=== PATIENT | female | born 1960 | race Caucasian/White ===

== ENCOUNTER 2020-07-12 14:46 | Outpatient (CLI) | payer OTHER, SELFPAY ==
[2020-07-12 15:36] LABS: Anion Gap 13 mmol/L (8-16); Blood Urea Nitrogen 12 mg/dL (7-17); Carbon Dioxide 27 mmol/L (22-30); Chloride 98 mmol/L (98-107); Estimated Glomerular Filt Rate 46; Glucose 118 mg/dL (65-105); Magnesium 1.6 mg/dL (1.6-2.3); Potassium 3.7 mmol/L (3.4-5.0); Sodium 138 mmol/L (137-145)
[2020-07-12 16:15] LABS: Erythrocyte Sedimentation Rate 15 mm/hr (0-20)
== END 2020-07-12 14:47 | disposition home or self-care (01) ==
PROVIDERS: PCP Internal Medicine; Visit Provider Internal Medicine
DX: N17.9 Acute kidney failure, unspecified (principal); R51.9 Headache, unspecified; G89.29 Other chronic pain
CPT/HCPCS: 36415; 80048; 83735; 85652

== ENCOUNTER 2020-07-17 00:55 | Outpatient (CLI) | payer OTHER, SELFPAY ==
[2020-07-17 18:47] LABS: SARS-CoV-2 RNA PCR Negative
== END 2020-07-17 00:56 | disposition home or self-care (01) ==
LOC: ANHCOVIDDT 00:55
PROVIDERS: PCP Internal Medicine; Visit Provider Internal Medicine
DX: Z01.812 Encounter for preprocedural laboratory examination (principal); Z20.822 Contact with and (suspected) exposure to COVID-19
CPT/HCPCS: C9803; U0003; U0005

== ENCOUNTER 2020-07-22 09:20 | Outpatient (CLI) | payer OTHER, SELFPAY ==
--- NOTE | ~2020-07-22 | XR_ITS ---
EXAMINATION: XR lumbar puncture diagnostic DATE: 07/22/2020 11:40 INDICATION: Headache, unspecified. TECHNIQUE: The procedure including the risks, benefits, and alternatives was discussed with the patie nt. Risks discussed included spinal headache, cerebrospinal fluid leak, bleeding, and infection. The patient understood the risks and agreed to proceed. A timeout was performed to verify the patient' s name, date of , and procedure to be performed. The skin overlying the level was prepped and d raped in usual sterile fashion. Subcutaneous 1% lidocaine was used for local anesthesia. A 20 gauge spinal needle was advanced under fluoroscopic guidance. The needle was removed and the entry site wa s cleaned and dressed. There were no immediate complications. Fluoroscopy exposure time was 0.0 angeles matthew. The total number of images was 1. FINDINGS: Real-time fluoroscopy demonstrates the needle at the L2-L3 level. The opening pressure was 16 cm water (Normal range is variably defined as 6-20 cm water and up to 25 cm water in obese patient s. Pressure >25 cm water is one of the modified Dandy criteria for idiopathic intracranial hypertensi on). 14 mL of clear, colorless fluid was collected in 4 tubes. IMPRESSION: 1. Successful fluoro-guided lumbar puncture. Reviewed, dictated and finalized at location A. [employer]
[2020-07-22 10:20] LABS: INR 0.8; Prothrombin Time 11.8 Seconds (11.1-14.7)
[2020-07-22 10:40] VITALS: BP 130/70; PULSE 70; RESP 16; O2SAT 99
[2020-07-22 11:20] VITALS: BP 131/72; BP 135/74; PULSE 66; PULSE 70; RESP 16; RESP 18; TEMP 36.2; O2SAT 96; O2SAT 98
[2020-07-22 11:50] VITALS: BP 137/77; PULSE 61; RESP 18; O2SAT 98
[2020-07-22 12:02] LABS: Glucose CSF 62 mg/dL (40-70); Total Protein CSF 64 mg/dL (12-60)
[2020-07-22 12:20] VITALS: BP 127/61; PULSE 68; RESP 18; O2SAT 100
[2020-07-22 12:50] VITALS: BP 129/69; PULSE 71; RESP 18; O2SAT 97
[2020-07-22 13:02] LABS: Appearance CSF Clear (Clear); CSF source CSF; Color CSF Colorless (Colorless); Lymphocytes CSF 9 % (40-80); Monocytes CSF 1 % (15-45); Neutrophils CSF 2 % (0-6); Nucleated Cell CSF 0 /uL (0-5); Red Blood Cell CSF 0 (0-2)
[2020-07-22 13:05] VITALS: BP 136/56; PULSE 66; RESP 16; O2SAT 98
== END 2020-07-22 13:20 | disposition home or self-care (01) ==
PROVIDERS: Radiology Diagnostic Radiology; PCP Internal Medicine; Visit Provider Internal Medicine
DX: R51.9 Headache, unspecified (principal); G89.29 Other chronic pain
CPT/HCPCS: 36415; 62328; 82945; 83605; 84157; 85610; 87070; 89051

== ENCOUNTER 2021-04-20 20:35 | Inpatient (IN) | payer OTHER, SELFPAY ==
--- NOTE | ~2021-04-20 | XR_ITS ---
EXAMINATION: XR ERCP DATE: 04/22/2021 14:38 INDICATION: EXAMINATION: XR ERCP DATE: 04/22/2021 14:38 INDICATION: Sludge versus gallstones. Pancreatitis. TECHNIQUE: 5 fluoroscopic images of the right upper quadrant were obtained during ERCP performed by George Naqvi. Radiologist was not present for the imaging or procedure. The amount of fluoroscopy time u sed during this procedure was 1.9 minutes. COMPARISON: MRCP dated 04/21/2021 FINDINGS: Initial image demonstrates cannulation and retrograde contrast opacification of the distal main pancr eatic duct which appears normal. Subsequently the common bile duct is cannulated with retrograde cont rast opacification demonstrating normal caliber duct with ovoid filling defect in the distal duct on the initial images likely representing a gallstone. Dilute contrast is seen extending into the normal diameter gallbladder. IMPRESSION: 1. Small gallstone in the distal aspect of the normal appearing common bile duct which per procedure note was subsequently extracted. See procedure note for further detail. TECHNIQUE: Multiple spot fluoroscopic images of the right upper quadrant were obtained during endosco pic retrograde cholangiopancreatography (ERCP) performed by . Radiologist was not present for the amy ging or procedure. The amount of fluoroscopy time used during this procedure was minutes. COMPARISON: None. FINDINGS: IMPRESSION: 1. Please refer to the ERCP procedure note for additional details. Reviewed, dictated and finalized at location A. IMPRESSION: 1. Small gallstone in the distal aspect of the normal appearing common bile gretta t which per procedure note was subsequently extracted. See procedure note for f urther detail. TECHNIQUE: Multiple spot fluoroscopic images of the right upper quadrant were o btained during endoscopic retrograde cholangiopancreatography (ERCP) performed by . Radiologist was not present for the imaging or procedure. The amount of fl uoroscopy time used during this procedure was minutes. COMPARISON: None. FINDINGS:
--- NOTE | ~2021-04-20 | CT_ITS ---
EXAMINATION: CT abdomen pelvis w con DATE: 04/20/2021 23:16 INDICATION: Pancreatitis TECHNIQUE: Computed tomography (CT) of the abdomen and pelvis was performed with 100 cc Omnipaque 350 intravenous contrast. Automated exposure control and iterative reconstruction technique were employe d. Exam dose: 351.19 mGy-cm total exam DLP. COMPARISON: None. FINDINGS: Approximately 12 mm soft tissue density in the posterior basilar areas in right lower lobe which may represent some focal atelectasis, consolidation and/or fibrotic change. Malignancy is less likely. There is discoid atelectasis and/or scarring involving primarily the right lower lobe. Normal heart size. No pericardial or pleural effusion. The liver, gallbladder, spleen, and adrenal glands are unremarkable. There is abnormal enlargement and irregularity of the body of the pancreas, with irregular areas of l ower attenuation consistent with cystic change and/or necrosis. There is prominent peripancreatic fat stranding and thickening of the left anterior pararenal fascia. Findings are consistent with pancrea titis. There are focal areas of left renal scarring. No renal space occupying mass lesion or urinary tract c alculus is evident. There is atherosclerotic calcification but no aneurysm of the abdominal aorta. No intraperitoneal or retroperitoneal or pelvic mass lesion or adenopathy or ascites. The uterus, adnexal areas and urinary bladder are unremarkable. Small fat-containing umbilical hernia. No suspicious osteolytic or osteoblastic lesions. IMPRESSION: Pancreatitis Reviewed, dictated and finalized at Location A. Reviewed, dictated and finalized at location A. IMPRESSION: Pancreatitis
--- NOTE | ~2021-04-20 | CT_ITS ---
EXAMINATION: CT abdomen wo con DATE: 04/23/2021 19:04 INDICATION: Uncontrolled abdominal pain TECHNIQUE: Computed tomography (CT) of the abdomen was performed without intravenous contrast. Automa chelsea exposure control and iterative reconstruction technique were employed. Exam dose: 132.28 mGy-cm total exam DLP. COMPARISON: 04/21/2021 right upper quadrant abdominal ultrasound 04/20/2021 CT abdomen pelvis FINDINGS: There is mild atelectasis in the lower lung zones, most prominent in the dependent right lo wer lobe. Normal heart size. No pericardial or pleural effusion. There is peripancreatic fat stranding consistent with pancreatitis. Persistent approximately 11 mm hy poattenuating area in the body of the pancreas which may represent cystic or focal necrotic change, n ot significant change since 04/20/2021. There is mild common bile duct dilatation measuring up to approximately 10 mm diameter. There is cont rast material within the gallbladder and common bile duct. No hepatic, splenic space-occupying mass lesion. No splenomegaly. Normal morphology of the adrenal gl ands. Left renal scarring is again noted. No renal mass lesion or hydroureteronephrosis. Abdominal aortic calcification; no abdominal aortic aneurysm. No intraperitoneal or retroperitoneal m ass lesion or adenopathy or ascites. No bowel obstruction is detected. IMPRESSION: Stable changes of pancreatitis since 04/20/2021 Distended gallbladder and common bile duct measuring up to 10 mm, both increased in prominence since 04/20/2021 Reviewed, dictated and finalized at Location A. Reviewed, dictated and finalized at location A. IMPRESSION: Stable changes of pancreatitis since 04/20/2021 Distended gallbladder and common bile duct measuring up to 10 mm, both increase d in prominence since 04/20/2021
--- NOTE | ~2021-04-20 | MR_ITS ---
EXAMINATION: MR MRCP wo/w con/w 3D wo ind DATE: 04/21/2021 14:04 INDICATION: Recurrent pancreatitis TECHNIQUE: Magnetic resonance imaging (MRI) of the abdomen was performed without and with intravenous contrast. Sequences included coronal T2-weighted SS-FSE ARC, coronal T2-weighted FS SS-FSE, coronal T2-weighted 2D FS FIESTA, Water:Coronal LAVA-Flex, sagittal T2-weighted SS-FSE ARC, axial SSFSE ARC, axial 3D DualEcho, axial DWI B=600, axial T1-weighted LAVA, FAT:Coronal LAVA-Flex, and coronal in and opposed phase LAVA-Flex. Thick-slab T2-weighted FRFSE-XL images were obtained for magnetic resonance cholangiopancreatography (MRCP). Maximum intensity projection 3-D reconstructions of the volumetric data were created by the technologist. Postcontrast sequences included a time course of axial T1-weig hted LAVA, FAT:Coronal LAVA-Flex, coronal in and opposed phase LAVA-Flex, and Water:Coronal LAVA-Flex . COMPARISON: CT from yesterday CONTRAST: Multihance, 10 cc FINDINGS: ABDOMEN MRI: There is atelectasis in the lower lobes. The liver, spleen, gallbladder, and adrenal gla nds are normal. There is a small amount of inflammatory fluid surrounding the pancreas. There is a 1. 5 cm fluid collection in the body of the pancreas. Cysts of the kidneys measure up to 11 mm on the le ft. There is cortical scarring of the kidneys. No pathologically enlarged abdominal lymph nodes are i dentified. There are no dilated loops of bowel. ABDOMEN MRCP: Their is no intrahepatic or extrahepatic biliary dilatation. There appears to be a 3 mm stone in the distal common bile duct on the MRCP sequences. There is enlargement of the pancreatic d uct in the body of the pancreas, likely reflecting prior pancreatitis. IMPRESSION: 1. Necrotizing pancreatitis with sterile acute necrotic collection. 2. Possible 3 mm stone of the distal common bile duct. Reviewed, dictated and finalized at location B.
--- NOTE | ~2021-04-20 | US_ITS ---
EXAMINATION: US right upper quadrant EXAM DATE: 04/21/2021 08:27 INDICATION: Pancreatitis. TECHNIQUE: Multiple grayscale and Doppler images of the abdomen right upper quadrant were obtained (cecille y a technologist who performed the scan) and subsequently reviewed. There is no prior study for [place]. FINDINGS: The pancreatic head and body are normal in appearance. The pancreatic tail is not visualized. Please note that uncomfortable aerated pancreatitis typically does not have ultrasound findings. The liver has normal echogenicity and contour. There are no focal liver lesions identified. There is no evid ence of intrahepatic biliary duct dilation. Portal venous flow was seen in the hepatopedal, normal d irection and has normal Doppler waveform. No right-sided hydronephrosis. Common bile duct measures 2 mm, which is normal. The gallbladder wall is normal in thickness, with ex pected amount of distention. No sonographic evidence of pericholecystic fluid. There is no cholelit hiases. Technologist performing exam reports patient did not demonstrate sonographic Graff's sign. Please note that this sign is less reliable in patients who have received pain medication. IMPRESSION: 1. Unremarkable abdominal ultrasound exam. Reviewed, dictated and finalized at location A.
[2021-04-20 20:42] VITALS: BP 149/67; PULSE 89; RESP 16; TEMP 36.6; O2SAT 100
[2021-04-20 22:16] VITALS: BP 170/75; PULSE 102; RESP 20; O2SAT 100
[2021-04-20 22:17] VITALS: BP 170/75; PULSE 103; RESP 20; TEMP 36.8; O2SAT 100
[2021-04-20 22:17] LABS: Add Urine Microscopic? YES; Appearance Urine Cloudy (Clear); Bilirubin Urine Negative (Negative); Blood Urine Negative (Negative); Color Urine Yellow (Yellow); Glucose Urine UA Negative (Negative); Ketones Urine Negative (Negative); Leukocyte Esterase Ur Negative LEU/UL (Negative); Mucus Urine Rare /lpf; Nitrate Urine Negative (Negative); Protein Urine Negative (Negative); RBC Urine 21-50 /hpf (0-2); Specific Grav Ur 1.016 (1.001-1.035); Squamous Epithelial Cell Urine Few /hpf (Few)
[2021-04-20] MEDS: MORPHINE SULFATE (*CRX) 4 MG/ML INJ IV PUSH (22:19)
[2021-04-20] MEDS: SODIUM CHLORIDE 0.9% IV 1,000 ML 999 ML IV CONT (22:20)
[2021-04-20 22:26] LABS: Basophils Absolute Auto 0.1 K/mm3 (0.0-0.1); Basophils Percent Auto 0.9 % (0.2-1.2); Eosinophils Absolute Auto 0.4 K/mm3 (0-0.3); Eosinophils Percent Auto 4.1 % (0-4.4); Hematocrit 32.6 % (37.0-47.0); Hemoglobin 10.2 g/dL (12.0-15.0); Immature Granulocyte Absolute 0.03 K/mm3 (0.00-0.031); Immature Granulocyte Percent A 0.3 % (0-0.5); Lymphocytes Absolute Auto 1.78 K/mm3 (0.9-3.2); Lymphocytes Percent Auto 19.7 % (18.3-44.2); Mean Corpuscular HGB Conc 31.3 g/dl (32-36); Mean Corpuscular Hemoglobin 26.8 pg (26-34); Mean Corpuscular Volume 85.8 fl (80-100); Mean Platelet Volume 10.4 fl (7.4-10.4); Monocytes Absolute Auto 0.5 K/mm3 (0.1-0.6); Monocytes Percent Auto 5.9 % (2.6-8.5); Neutrophils Absolute Auto 6.2 K/mm3 (1.3-6.7); Neutrophils Percent Auto 69.1 % (45.5-73.1); Platelet Count Result 253 k/mm3 (150-375); Red Cell Distribution Width 17.2 % (11.5-14.5)
[2021-04-20 22:46] VITALS: BP 164/75; PULSE 76; RESP 15; O2SAT 97
[2021-04-20 22:53] LABS: Anion Gap 9 mmol/L (8-16); Blood Urea Nitrogen 9 mg/dL (7-17); Calcium 9.9 mg/dL (8.4-10.2); Carbon Dioxide 25 mmol/L (22-30); Chloride 107 mmol/L (98-107); Estimated CRCL calculation 40 ml/min; Estimated Glomerular Filt Rate 51; Glucose 141 mg/dL (65-110); Potassium 4.4 mmol/L (3.4-5.0); Sodium 141 mmol/L (137-145)
--- NOTE | 2021-04-20 23:03 | PC.NURSE ---
Pt to CT scan via stretcher at this time.
[2021-04-21] VITALS (8 sets, daily range): BP systolic 121–165; BP diastolic 56–74; PULSE 79–98; RESP 15–21; TEMP 36.3–36.6; O2SAT 92–100; BMI 22.9
[2021-04-21] MEDS: MORPHINE SULFATE (*CRX) 4 MG/ML INJ IV PUSH ×4 (00:12→23:55)
--- NOTE | 2021-04-21 00:13 | ED.ABDPAIN ---
HPI - Abdominal Pain General Chief Complaint: Abdominal Pain Stated Complaint: abnormal labs Time Seen by Provider: 04/20/21 21:48 Source: patient Mode of arrival: ambulatory Limitations: no limitations History of Present Illness HPI narrative: 60-year-old with a history of pancreatitis here with complaints of upper abdominal pain for past few days. Patient states that she was admitted at [facility] for for the same the month of February for 1 week. For past few days she states she has been having constant pain unable to eat or drink because of the pain. She states that she saw her primary doctor this morning and recommended her to go to the emergency room. She denies any vomiting but has nausea. No history of any diarrhea or fever. MD elicited complaint: abdominal pain Pertinent past history: other (Pancreatitis) Onset (ago): day(s) (3) Location: epigastric Severity: moderate Quality: aching Radiation: epigastric Migration to: no migration Exacerbating factors: nothing Related Data Allergies Allergy/AdvReac Type Severity Reaction Status Date / Time tramadol Allergy Vomiting Verified 07/20/20 08:05 Review of Systems Review of Systems: All systems reviewed & are unremarkable except as noted in HPI and below Constitutional: Constitutional: Reports no additional constitutional complaints Eyes: Eyes: Reports no additional eye complaints ENT: Reports system reviewed and no additional complaints, except as documented Cardiovascular: Cardiovascular: Reports no additional cardiovascular complaints Respiratory: Respiratory: Reports no additional respiratory complaints Gastrointestinal: Gastrointestinal: Reports as per HPI Musculoskeletal: Musculoskeletal: Reports no additional musculoskeletal complaints Integumentary/Breasts: Skin/Breast: Reports system reviewed and no additional complaints, except as docu Neurologic: Reports system reviewed and no additional complaints, except as documented PMFSH Past Medical History Medical History Arthritis Chronic pancreatitis Gallbladder disorder Headache Hearing loss Ulcer Unspecified sensorineural hearing loss Family History Family History Mother Lung cancer Social History Social History Smoking packs per day: 1 Smoking cigarettes per day: 20.0 Years smoked: 30 Smoking pack-years: 30.00 Smoking status: Former smoker Tobacco type: cigarettes Alcohol intake: current Exam Narrative: GENERAL: Well-appearing, well-nourished, and in no acute distress. HEAD: Normocephalic, atraumatic. EYES: PERRLA and EOMI.. NECK: Supple. CHEST: Clear to auscultation. No respiratory distress. HEART: Regular rate and rhythm. No murmur heard. Normal peripheral pulses. ABDOMEN: Soft, tender in the epigastric area, nondistended, normal active bowel sounds. EXTREMITIES: Normal range of motion. No edema. SKIN: Warm, dry, no rash. NEURO: No focal deficits. Alert and oriented x3. PSYCH: Normal mood and affect. Course Course Emergency Course: Patient continues to have pain even after morphine. I have reviewed lab work, CT findings. Discussed with hospitalist agreed to admit the patient. Vital Signs Vital signs: Vital Signs Temperature 36.6 C 04/20/21 20:42 Pulse Rate 89 04/20/21 20:42 Respiratory Rate 16 04/20/21 20:42 Blood Pressure 149/67 H 04/20/21 20:42 Pulse Oximetry 100 04/20/21 20:42 Temperature 36.8 C 04/20/21 22:17 Pulse Rate 98 04/21/21 00:11 Respiratory Rate 18 04/21/21 00:11 Blood Pressure 164/75 H 04/20/21 22:46 Pulse Oximetry 100 04/21/21 00:11 MDM - Abdominal Pain Differential Diagnosis Differential diagnosis: Likely abdominal pain, constipation, gastroenteritis, pancreatitis and small bowel obstruction Medical Records Attestation: I review
[2021-04-21 00:44] LABS: Alanine Aminotransferase 14 U/L (4-35); Albumin Level 4.4 g/dL (3.5-5.1); Alkaline Phosphatase 108 U/L (38-126); Aspartate Amino Transferase 27 U/L (14-36); Bilirubin,Total 0.4 mg/dL (0.2-1.3); Lipase 709 U/L (23-300)
--- NOTE | 2021-04-21 01:29 | ADMGEN ---
This patient, Janell Asencio, was admitted to 2 Medical Room 255-. Patient/family oriented to hospital policies and general routines including ID bracelet, bed and alarms, visiting hours, pain management, procedures, bathroom and other care routines, personal items, smoking policy, room service/diet, and visiting hours. Information on how to activate the Rapid Response Team has been discussed. Patient/Family are encouraged to report perceived risks to care and to ask questions if they do not understand what they are told or what they should do.
[2021-04-21] MEDS: SODIUM CHLORIDE 0.9% IV 1,000 ML 125 ML IV CONT ×2 (01:42→11:25)
--- NOTE | 2021-04-21 02:56 | PM.IMHP ---
H&P: HPI History of Present Illness Date/Time: 04/21/21 02:56 Chief Complaint: Abdominal pain Narrative: 60-year-old presents to the ED with abdominal pain for past few days. She states she has not been able to eat Because of the pain. Denies any diarrhea or any urinary symptoms. She has nausea but no vomiting. She states she has history of pancreatitis in February number was in [facility] for a week. she followed up with the primary care after the discharge when she was feeling better already. She went to see her primary care doctor yesterday morning and she recommended her to go to the ER for evaluation. she was told that she had some kidney issues and hence sent to the ED. No fever chills. She used to be a social drinker but 3 years ago and stopped drinking since then. Review of Systems Review of Systems: - CONSTITUTIONAL: Denies weight loss, fever and chills. - HEENT: Denies changes in vision and hearing - RESPIRATORY: Denies SOB and cough. - CV: Denies palpitations and CP. - GI: Reports abdominal pain, nausea, denies vomiting and diarrhea. - : Denies dysuria and urinary frequency. - MSK: Denies myalgia and joint pain. - SKIN: Denies rash and pruritus. - NEUROLOGICAL: Denies headache and syncope. - PSYCHIATRIC: Denies recent changes in mood. Denies anxiety and depression. All systems reviewed & are unremarkable except as noted in HPI and below Constitutional: Constitutional: Reports fatigue and Reports weakness Neurologic: Reports weakness Endocrine: Endocrine: Reports fatigue [facility] Past Medical History Medical History Arthritis Chronic pancreatitis Gallbladder disorder Headache Hearing loss Ulcer Unspecified sensorineural hearing loss Family History Family History Mother Lung cancer Social History Social History Smoking packs per day: 1 Smoking cigarettes per day: 20.0 Years smoked: 30 Smoking pack-years: 30.00 Smoking status: Former smoker Tobacco type: cigarettes Alcohol intake: former Substance use: current Substance use type: marijuana Last use: 1 WEEK AGO Spiritual care concerns: No Meds Home Medications and Allergies Home Medications Medication Instructions Recorded Confirmed Type gabapentin 300 mg capsule 300 mg PO TID #270 cap 06/28/20 04/21/21 Rx omeprazole 20 mg capsule,delayed 20 mg PO DAILY #90 cap 06/28/20 04/21/21 Rx release duloxetine 30 mg capsule,delayed 30 mg PO DAILY #90 cap 02/28/21 04/21/21 Rx release duloxetine 60 mg capsule,delayed 60 mg PO DAILY #90 cap 02/28/21 04/21/21 Rx release pantoprazole 40 mg PO QAM 04/21/21 04/21/21 History Allergies Allergy/AdvReac Type Severity Reaction Status Date / Time tramadol Allergy Vomiting Verified 07/20/20 08:05 Vital Signs Vital Signs - 24 hr 04/20/21 20:42 04/20/21 22:16 04/20/21 22:17 Temperature 97.9 F 98.2 F Pulse Rate 89 102 H 103 H Respiratory Rate 16 20 20 Blood Pressure 149/67 H 170/75 H 170/75 H Pulse Oximetry 100 100 100 04/20/21 22:46 04/21/21 00:11 04/21/21 01:05 Temperature Pulse Rate 76 98 90 Respiratory Rate 15 18 15 Blood Pressure 164/75 H 153/70 H 145/74 H Pulse Oximetry 97 100 99 04/21/21 01:33 Temperature 97.5 F L Pulse Rate 88 Respiratory Rate 21 H Blood Pressure 165/72 H Pulse Oximetry 100 Exam Narrative: GENERAL: Well-appearing, well-nourished, and in no acute distress. HEAD: Normocephalic, atraumatic. EYES: PERRLA and EOMI.. NECK: Supple. CHEST: Clear to auscultation. No respiratory distress. HEART: Regular rate and rhythm. No murmur heard. Normal peripheral pulses. ABDOMEN: Soft, tender epigastric area and also in lower abdominal area, nondistended, normal active bowel sounds. no rebound tenderness or guarding EXTREMITIES: Normal ran
[2021-04-21 03:29] LABS: Triglycerides 97 mg/dL (<150)
[2021-04-21 05:46] LABS: Add Urine Microscopic? NO; Appearance Urine Clear (Clear); Bilirubin Urine Negative (Negative); Blood Urine Negative (Negative); Color Urine Straw (Yellow); Glucose Urine UA Negative (Negative); Ketones Urine Negative (Negative); Leukocyte Esterase Ur Negative LEU/UL (NEGATIVE); Nitrate Urine Negative (Negative); Protein Urine Negative (Negative); Urobilinogen Urine Negative mg/dL (<2.0)
[2021-04-21 06:04] LABS: Specific Grav Ur 1.035 (1.001-1.035)
[2021-04-21] MEDS: GABAPENTIN 300 MG CAPSULE PO ×3 (08:40→18:04)
[2021-04-21] MEDS: DULoxetine HCL 60 MG CAPSULE.DR PO (08:41)
[2021-04-21] MEDS: DULoxetine HCL 30 MG CAPSULE.DR PO (08:41)
[2021-04-21] MEDS: PANTOPRAZOLE SODIUM IV 40 MG VIAL IV PUSH (08:43)
[2021-04-21] MEDS: ENOXAPARIN 40 MG/0.4 ML SYRINGE SUB-Q (08:43)
[2021-04-21 09:03] LABS: Hemoglobin 9.5 g/dL (12.0-15.0)
[2021-04-21 09:25] LABS: Immunoglobulin G 745 mg/dL (700-1600)
[2021-04-21 10:28] LABS: Anion Gap 10 mmol/L (8-16); Blood Urea Nitrogen 6 mg/dL (7-17); Carbon Dioxide 17 mmol/L (22-30); Chloride 115 mmol/L (98-107); Estimated CRCL calculation 48 ml/min; Estimated Glomerular Filt Rate > 60; Glucose 92 mg/dL (65-110); Lipase 315 U/L (23-300); Potassium 4.4 mmol/L (3.4-5.0); Sodium 142 mmol/L (137-145)
--- NOTE | 2021-04-21 12:16 | WPDGICN ---
Assessment and Plan Assessment and plan (1) Acute on chronic pancreatitis: Code(s): K85.90 - Acute pancreatitis without necrosis or infection, unspecified; K86.1 - Other chronic pancreatitis Status: Acute Assessment and Plan: Patient appears to have chronic pancreatitis with some acute component at present. Her lipase is over 700 on presentation is now 300. Etiology appears to be previous alcohol intake. I understand IgG levels are being obtained to exclude autoimmune pancreatitis. Would also recommend an MRCP to clear the biliary tree. As lipase decreases in her pain improves would suggest advancing to low-fat diet. Continuing Creon as an outpatient may help minimize some of her discomfort as well. Continued alcohol abstinence is strongly encouraged. GI Consult Note Consult date/time: 04/21/21 12:16 HPI: Janell Asencio is a 60 year old female I am asked to see because of pancreatitis. Patient has a history of alcohol use until 3 years ago. Three years ago was identified as having pancreatitis and she states she has been abstinent of alcohol since that time. She has had relapses of her pancreatitis intermittently and has gone to various different hospitals. Initially diagnosed at [facility]. Her most recent hospitalization was 1 month ago at [facility]. Patient states she has continued to have pain since that time although the intensity is lessened it became more intense she was seen by primary care service and laboratory tests apparently showed elevated lipase prompting her to come to the ER and be admitted. CT scan in the ER reveals no evidence of gallstones on recent exam. Patient additionally complains of ongoing back pain that she attributes to some orthopedic difficulties. Review of Systems Review of Systems: All systems reviewed & are unremarkable except as noted in HPI and below PMFSH Past Medical History Medical History Arthritis Chronic pancreatitis Gallbladder disorder Headache Hearing loss Ulcer Unspecified sensorineural hearing loss Family History Family History Mother Lung cancer Social History Social History Smoking packs per day: 1 Smoking cigarettes per day: 20.0 Years smoked: 30 Smoking pack-years: 30.00 Smoking status: Former smoker Tobacco type: cigarettes Alcohol intake: former Substance use: current Substance use type: marijuana Last use: 1 WEEK AGO Spiritual care concerns: No Meds Home Medications and Allergies Home Medications Medication Instructions Recorded Confirmed Type gabapentin 300 mg capsule 300 mg PO TID #270 cap 06/28/20 04/21/21 Rx omeprazole 20 mg capsule,delayed 20 mg PO DAILY #90 cap 06/28/20 04/21/21 Rx release duloxetine 30 mg capsule,delayed 30 mg PO DAILY #90 cap 02/28/21 04/21/21 Rx release duloxetine 60 mg capsule,delayed 60 mg PO DAILY #90 cap 02/28/21 04/21/21 Rx release pantoprazole 40 mg PO QAM 04/21/21 04/21/21 History Allergies Allergy/AdvReac Type Severity Reaction Status Date / Time tramadol Allergy Vomiting Verified 07/20/20 08:05 Vital Signs Vital Signs - 24 hr 04/20/21 20:42 04/20/21 22:16 04/20/21 22:17 Temperature 97.9 F 98.2 F Pulse Rate 89 102 H 103 H Respiratory Rate 16 20 20 Blood Pressure 149/67 H 170/75 H 170/75 H Pulse Oximetry 100 100 100 04/20/21 22:46 04/21/21 00:11 04/21/21 01:05 Temperature Pulse Rate 76 98 90 Respiratory Rate 15 18 15 Blood Pressure 164/75 H 153/70 H 145/74 H Pulse Oximetry 97 100 99 04/21/21 01:33 04/21/21 04:00 Temperature 97.5 F L 97.4 F L Pulse Rate 88 79 Respiratory Rate 21 H 20 Blood Pressure 165/72 H 141/71 H Pulse Oximetry 100 98 Exam Narrative: Physical exam reveals patient be alert. Vital signs stable. HEENT exam is unremarkable. Patient is anic
[2021-04-21] MEDS: LORazepam INJ (*CRX) 2 MG/ML VIAL 1 MG IV PUSH (13:13)
--- NOTE | 2021-04-21 14:44 | PM.IMPN ---
Progress Note: A&P Assessment and Plan (1) Acute on chronic pancreatitis: Code(s): K85.90 - Acute pancreatitis without necrosis or infection, unspecified; K86.1 - Other chronic pancreatitis Status: Acute Assessment and Plan: Presented with epigastric pain, Lipase elevated up to 709, and CT abdomen/ pelvis showed findings consistent with pancreatitis. RUQ ultrasound unremarkable. lipase improved to 300 today continue gentle IV fluids until she is tolerating diet MRCP performed today. Awaiting results appreciate gastroenterology consultation advance to low-fat diet per GI analgesics and antiemetics available as needed LFTs and triglycerides within normal limits (2) Chronic kidney disease, stage 3: Code(s): N18.30 - Chronic kidney disease, stage 3 unspecified Status: Acute Assessment and Plan: Renal function actually improved from baseline at this time. Continue to monitor BMP closely (3) Elevated blood pressure reading: Code(s): R03.0 - Elevated blood-pressure reading, without diagnosis of hypertension Status: Acute Assessment and Plan: She does not carry a diagnosis of hypertension and is not on any antihypertensive agents. Blood pressure has been elevated which may be related to pain. Improving today with last BP 141/66. Monitor blood pressure trends (4) Microscopic hematuria: Code(s): R31.29 - Other microscopic hematuria Status: Acute Assessment and Plan: Resolved on repeat UA performed today. 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 she is doing pretty well at this time. She denies any abdominal pain. She previously had some epigastric pain that radiated to the back but this seems to have improved significantly. She has been NPO for her MRCP and is feeling hungry and is requesting to eat some solid food. No nausea or vomiting. She denies fever or chills. No shortness breath, cough, or chest pain. She denies urinary symptoms. No diarrhea. She is a little sleepy. Review of Systems Review of Systems: All systems reviewed & are unremarkable except as noted in HPI and below Exam Narrative: Ms. Asencio is A well-nourished, well-appearing 60-year-old female who is lying supine in bed. he appears comfortable and is in NARD. Neuro: awake, alert and oriented x4, speech clear, no focal neuro deficits noted HEENMT: normocephalic, atraumatic, EOMI, sclerae anicteric, moist oral mucosa Neck: supple, no lymphadenopathy Respiratory: clear to auscultation bilaterally, nonlabored breathing Cardio: regular rate, regular rhythm with S1-S2 Abdomen: nondistended, normoactive bowel sounds, soft, nontender to palpation, no epigastric tenderness Extremities: no edema, erythema, or tenderness to palpation, DP pulses 2+ bilaterally Skin: no rashes or lesions, warm and dry Psych: appropriate mood and affect, judgment and insight intact Objective Data Vital Signs Vital Signs: Vital Signs - 24 hr 04/20/21 20:42 04/20/21 22:16 04/20/21 22:17 Temperature 97.9 F 98.2 F Pulse Rate 89 102 H 103 H Respiratory Rate 16 20 20 Blood Pressure 149/67 H 170/75 H 170/75 H Pulse Oximetry 100 100 100 04/20/21 22:46 04/21/21 00:11 04/21/21 01:05 Temperature Pulse Rate 76 98 90 Respiratory Rate 15 18 15 Blood Pressure 164/75 H 153/70 H 145/74 H Pulse Oximetry 97 100 99 04/21/21 01:33 04/21/21 04:00 04/21/21 12:00 Temperature 97.5 F L 97.4 F L 97.4 F L Pulse Rate 88 79 79 Respiratory Rate 21 H 20 20 Blood Pressure 165/72 H 141/71 H 141/66 H Pulse Oximetry 100 98 98 Intake/Output Intake/Output: Intake & Output 04/18/21 04/19/21 04/20/21 04/21/21 23
[2021-04-21] MEDS: SODIUM CHLORIDE 0.9% IV 1,000 ML 75 ML IV CONT (23:55)
[2021-04-22] VITALS (11 sets, daily range): BP systolic 133–167; BP diastolic 64–81; PULSE 86–122; RESP 16–20; TEMP 36.4–37; O2SAT 93–100
[2021-04-22 05:33] LABS: Hematocrit 30.6 % (37.0-47.0); Hemoglobin 9.4 g/dL (12.0-15.0); Mean Corpuscular HGB Conc 30.7 g/dl (32-36); Mean Corpuscular Volume 87.9 fl (80-100); Mean Platelet Volume 10.8 fl (7.4-10.4); Platelet Count Result 204 k/mm3 (150-375); Red Blood Count 3.48 M/mm3 (4.2-5.4); Red Cell Distribution Width 17.6 % (11.5-14.5); White Blood Count 6.3 K/mm3 (4.5-10.0)
[2021-04-22] MEDS: MORPHINE SULFATE (*CRX) 4 MG/ML INJ IV PUSH ×3 (05:36→20:25)
[2021-04-22 05:47] LABS: Anion Gap 7 mmol/L (8-16); Blood Urea Nitrogen 5 mg/dL (7-17); Calcium 8.9 mg/dL (8.4-10.2); Carbon Dioxide 21 mmol/L (22-30); Chloride 113 mmol/L (98-107); Estimated CRCL calculation 48 ml/min; Estimated Glomerular Filt Rate > 60; Glucose 76 mg/dL (65-110); Lipase 330 U/L (23-300); Potassium 4.2 mmol/L (3.4-5.0); Sodium 141 mmol/L (137-145)
[2021-04-22] MEDS: PANTOPRAZOLE SODIUM IV 40 MG VIAL IV PUSH (08:27)
[2021-04-22] MEDS: GABAPENTIN 300 MG CAPSULE PO ×2 (08:32→16:01)
[2021-04-22] MEDS: DULoxetine HCL 60 MG CAPSULE.DR PO (08:32)
[2021-04-22] MEDS: DULoxetine HCL 30 MG CAPSULE.DR PO (08:32)
--- NOTE | 2021-04-22 11:17 | PM.IMPN ---
Progress Note: A&P Assessment and Plan (1) Acute on chronic pancreatitis: Code(s): K85.90 - Acute pancreatitis without necrosis or infection, unspecified; K86.1 - Other chronic pancreatitis Status: Acute Assessment and Plan: Lipase 709-->315-->330 CT abdomen/ pelvis showed findings consistent with pancreatitis RUQ ultrasound unremarkable Continue gentle IVF MRCP 04/21-->necrotizing pancreatitis with sterile acute necrotic collection; possible 3 mm stone of the distal common bile duct. GI consulted, recommendations appreciated NPO Continue PPI, analgesics and antiemetics as needed LFTs and triglycerides within normal limits ERCP today (2) Chronic kidney disease, stage 3: Code(s): N18.30 - Chronic kidney disease, stage 3 unspecified Status: Acute Assessment and Plan: Renal function actually improved from baseline at this time. Continue to monitor BMP closely (3) Elevated blood pressure reading: Code(s): R03.0 - Elevated blood-pressure reading, without diagnosis of hypertension Status: Acute Assessment and Plan: She does not carry a diagnosis of hypertension and is not on any antihypertensive agents. Blood pressure has been elevated which may be related to pain. Improving today with last BP 141/66. Monitor blood pressure trends (4) Microscopic hematuria: Code(s): R31.29 - Other microscopic hematuria Status: Acute Assessment and Plan: Resolved on repeat UA performed today. Additional Plan # acute pancreatitis lipase elevated CT abdomen with irregularity of the body of the pancreas with irregular areas of lower attenuation consistent with cystic change and/or necrosis with prominent peripancreatic fat stranding and thickening of the left anterior para renal fascia. Will continue IV hydration IV analgesics IV antiemetics. will get right upper quadrant ultrasound to look at gallbladder pathology is. LFTs all normal. Get records from [facility] for previous workup. GI consult has been placed from the ER. Check triglyceride level and right upper quadrant ultrasound CT scan abdomen and pelvis done on 03/05/2021 showed evidence of pancreatitis along with suspected nonobstructive choledocholithiasis mild pancreatic duct dilatation up to 4.4 mm. Some clustered punctate hyperdensity in the distal common bile duct with common bile duct minimally prominent measuring up to 6 mm. Prior history of recurrent pancreatitis noted as well. With her recurrent history of pancreatitis with suspected gallbladder etiology with previous scans will move forward with MRCP/ MRI evaluation. GI consultation has also been obtained which is since he will at this point due to her recurrent history of pancreatitis with unclear etiology may need the ERCP evaluation Will also do autoimmune pancreatitis workup with IgG 4 level. Also check CA 19 9 #Abnormal CT chest likely discoid atelectasis and/or scarring right lower lobe. Previous CT scan also shows chronic right lung base opacity related to scarring and/ or bronchiectasis # hypertension could be related to pain no prior history of hypertension. Continue to monitor # GERD on pantoprazole continue same # CKD stage 3 stable # chronic low back pain on gabapentin and duloxetine # mild anemia no active signs bleeding continue to monitor # hematuria microscopic unclear etiology will recheck # DVT prophylaxis Lovenox # full code status #ERCP today Subjective Date/time seen: 04/22/21 11:17 Interval history: pt seen and evaluated; continues with abdominal pain; MRCP yesterday Review of Systems Review of Systems: All systems reviewed & are unremarkable except as noted in HPI and below Exam Const: General: no acute distress, alert and awake Orientation/consciousness: patient oriented x3 HENMT: Head: normocephalic and atraumatic Ears: hearing grossly normal bilaterally Face and sinus: face symmetric Mouth: Yes Nor
--- NOTE | 2021-04-22 12:57 | PC.NURSE ---
Pt to GI lab per stretcher 1257 04/22/21.
[2021-04-22] MEDS: LACTATED RINGERS 1,000 ML 150 ML IV CONT (13:12)
--- NOTE | 2021-04-22 13:29 | WPDANESEPPF ---
Anes - Initial Pre Proc Eval Procedure: Operation Date: 04/22/21 14:30 Proposed Procedures p Endoscopic Retro Cholangiopancreatogram - Reji Naqvi MD Date/Time: 04/22/21 13:29 Surgeon: Leslie Bonilla PA-C Pre Op Diagnosis: pancreatitis Patient Data Age: 60 Gender: F Height: 1.6 m Weight: 58.7 kg Last Vital Signs Temp 36.6 C 04/22/21 13:13 Pulse 104 H 04/22/21 13:13 Resp 20 04/22/21 13:13 BP 166/74 H 04/22/21 13:13 Pulse Ox 95 04/22/21 13:13 Allergies Allergy/AdvReac Type Severity Reaction Status Date / Time tramadol Allergy Vomiting Verified 04/22/21 13:12 Home Medications Medication Instructions Recorded Confirmed Type gabapentin 300 mg capsule 300 mg PO TID #270 cap 06/28/20 04/21/21 Rx omeprazole 20 mg capsule,delayed 20 mg PO DAILY #90 cap 06/28/20 04/21/21 Rx release duloxetine 30 mg capsule,delayed 30 mg PO DAILY #90 cap 02/28/21 04/21/21 Rx release duloxetine 60 mg capsule,delayed 60 mg PO DAILY #90 cap 02/28/21 04/21/21 Rx release pantoprazole 40 mg PO QAM 04/21/21 04/21/21 History Laboratory Tests 04/22/21 04/22/21 05:14 05:14 WBC 6.3 K/mm3 K/mm3 (4.5-10.0) RBC 3.48 M/mm3 L M/mm3 (4.2-5.4) Hgb 9.4 g/dL L g/dL (12.0-15.0) Hct 30.6 % L % (37.0-47.0) MCV 87.9 fl fl (80-100) MCH 27.0 pg pg (26-34) MCHC 30.7 g/dl L g/dl (32-36) RDW 17.6 % H % (11.5-14.5) Plt Count 204 k/mm3 k/mm3 (150-375) MPV 10.8 fl H fl (7.4-10.4) Sodium 141 mmol/L mmol/L (137-145) Potassium 4.2 mmol/L mmol/L (3.4-5.0) Chloride 113 mmol/L H mmol/L (98-107) Carbon Dioxide 21 mmol/L L mmol/L (22-30) Anion Gap 7 mmol/L L mmol/L (8-16) BUN 5 mg/dL L mg/dL (7-17) Creatinine 0.90 mg/dL mg/dL (0.7-1.0) Estim Creat Clear Calc 48 ml/min ml/min Estimated GFR > 60 (59 - ) Glucose 76 mg/dL mg/dL (65-110) Calcium 8.9 mg/dL mg/dL (8.4-10.2) Lipase 330 U/L H U/L (23-300) Patient hx anesthesia problems: none Family hx anesthesia problems: none Results Review: All pre-operative results and documents have been reviewed as part of the pre-operative evaluation. [facility] Past Medical History Medical History (Updated 04/21/21 @ 14:55 by Leslie Bonilla PA-C) Arthritis Chronic kidney disease, stage 3 Chronic pancreatitis Gallbladder disorder Headache Hearing loss Ulcer Unspecified sensorineural hearing loss Family History Family History Mother Lung cancer Social History Social History Smoking packs per day: 1 Smoking cigarettes per day: 20.0 Years smoked: 30 Smoking pack-years: 30.00 Smoking status: Former smoker Tobacco type: cigarettes Alcohol intake: former Substance use: current Substance use type: marijuana Last use: 1 WEEK AGO Spiritual care concerns: No Anes - Eval Final PreProcedure Day of Procedure 04/22/21 13:29 Patient weight: normal Heart: regular rate and rhythm Lungs: clear to auscultation and normal air movement Airway: Mallampati scale class II Neurological: alert and oriented Last oral intake: >/= 8 hours ASA classification: II Emergent: no Anesthetic plan: proceed Anesthesia type and monitoring: general GIVS and ETT Results Review: All pre-operative results and documents have been reviewed as part of the pre-operative evaluation. Informed Consent: The patient's anesthetic plan and its attendant risks and benefits were discussed with the patient/family/POA. Questions were solicited and answers provided to the satisfaction of the patient/family/POA.
--- NOTE | 2021-04-22 14:42 | SUR.OPER ---
Deborah Short RN charted ERCP under Zainab Thomson RN.
--- NOTE | 2021-04-22 15:11 | SUR.PHASEII ---
DR EUGENE NOTIFIED PT'S HEART RATE RUNNING 115-120. OTHER VITAL SIGNS 97% ON ROOM AIR, 148/71, RESP 18. PT SLEEPING COMFORTABLY AND AROUSES EASILY. NO NEW ORDERS.
--- NOTE | 2021-04-22 15:35 | PC.NURSE ---
Pt return from GI lab per traci.
[2021-04-22] MEDS: ENOXAPARIN 40 MG/0.4 ML SYRINGE SUB-Q (15:40)
[2021-04-22] MEDS: SODIUM CHLORIDE 0.9% IV 1,000 ML 50 ML IV CONT (16:01)
[2021-04-23] VITALS: BP 118/49; PULSE 83; RESP 20; TEMP 36.2; O2SAT 97
[2021-04-23] MEDS: MORPHINE SULFATE (*CRX) 4 MG/ML INJ IV PUSH ×4 (01:10→22:11)
[2021-04-23 04:00] VITALS: BP 120/55; PULSE 89; RESP 20; TEMP 37.2; O2SAT 100
[2021-04-23 07:13] LABS: Hematocrit 27.4 % (37.0-47.0); Hemoglobin 8.6 g/dL (12.0-15.0)
[2021-04-23 07:34] LABS: Anion Gap 8 mmol/L (8-16); Blood Urea Nitrogen 5 mg/dL (7-17); Calcium 8.7 mg/dL (8.4-10.2); Carbon Dioxide 22 mmol/L (22-30); Chloride 109 mmol/L (98-107); Estimated CRCL calculation 48 ml/min; Estimated Glomerular Filt Rate > 60; Glucose 104 mg/dL (65-110); Lipase 162 U/L (23-300); Potassium 3.8 mmol/L (3.4-5.0); Sodium 139 mmol/L (137-145)
[2021-04-23 08:00] VITALS: BP 128/57; PULSE 95; RESP 16; TEMP 36.6; O2SAT 95
[2021-04-23] MEDS: DULoxetine HCL 30 MG CAPSULE.DR PO (08:11)
[2021-04-23] MEDS: DULoxetine HCL 60 MG CAPSULE.DR PO (08:11)
[2021-04-23] MEDS: ENOXAPARIN 40 MG/0.4 ML SYRINGE SUB-Q (08:11)
[2021-04-23] MEDS: GABAPENTIN 300 MG CAPSULE PO ×3 (08:11→17:24)
--- NOTE | 2021-04-23 08:21 | WPDGIPROGNO ---
Progress Note: A&P Assessment and Plan (1) Acute on chronic pancreatitis: Code(s): K85.90 - Acute pancreatitis without necrosis or infection, unspecified; K86.1 - Other chronic pancreatitis Status: Acute Assessment and Plan: Patient with pancreatitis for the last 3 years. Initially felt to be from alcohol use. No obvious stone found on common bile duct yesterday but sludge was removed after sphincterotomy. Plan to allow low-fat diet. Continue supportive care. Hopefully discharge if pain under control and diet tolerated. Follow-up with CT scan may be beneficial in several weeks given the question of sterile neck or tightening pancreatitis. On recent CT scan. Will restart Creon supplements with meals as she is advancing diet. Subjective Date/time seen: 04/23/21 08:21 Patient alert and comfortable this morning. Tolerating low-fat diet. States abdominal pain has lessened to some degree. No nausea or vomiting evident. Had ERCP with sphincterotomy yesterday some sludge was withdrawn from the CBD. Review of Systems Review of Systems: All systems reviewed & are unremarkable except as noted in HPI and below Exam Narrative: Physical exam reveals patient be alert and afebrile. HEENT exam reveals no icterus. Lungs are clear. Heart without murmur. Abdomen bowel sounds present soft mild tenderness in the upper abdomen. No organomegaly evident. Objective Data Vital Signs Vital Signs: Vital Signs - 24 hr 04/22/21 13:13 04/22/21 14:34 04/22/21 14:44 Temperature 97.8 F 97.5 F L Pulse Rate 104 H 122 H 118 H Respiratory Rate 20 20 16 Blood Pressure 166/74 H 150/71 H 142/65 H Pulse Oximetry 95 100 100 04/22/21 14:54 04/22/21 15:04 04/22/21 15:14 Temperature Pulse Rate 120 H 118 H 115 H Respiratory Rate 18 16 18 Blood Pressure 145/73 H 148/71 H 138/68 Pulse Oximetry 100 97 96 04/22/21 15:24 04/22/21 16:00 04/22/21 20:00 Temperature 98.6 F 98.3 F Pulse Rate 114 H 100 86 Respiratory Rate 16 16 20 Blood Pressure 135/66 146/64 H 167/81 H Pulse Oximetry 96 97 98 04/23/21 00:00 04/23/21 04:00 Temperature 97.2 F L 98.9 F Pulse Rate 83 89 Respiratory Rate 20 20 Blood Pressure 118/49 L 120/55 L Pulse Oximetry 97 100 Intake/Output Intake/Output: Intake & Output 04/20/21 04/21/21 04/22/21 04/23/21 23:59 23:59 23:59 23:59 Intake Total 1000 2610 2190 290 Output Total 1300 1400 600 Balance 1000 1310 790 -310 Meds/Results Medications: Active Medications Generic Name Dose Route Start Last Admin Trade Name Freq PRN Reason Stop Dose Admin Duloxetine HCl 30 mg 04/21/21 09:00 04/23/21 08:11 Duloxetine Hcl 30 Mg Capsule. PO 30 mg DAILY LINO Administration Duloxetine HCl 60 mg 04/21/21 09:00 04/23/21 08:11 Duloxetine Hcl 60 Mg Capsule. PO 60 mg DAILY LION Administration Enoxaparin Sodium 40 mg 04/21/21 09:00 04/23/21 08:11 Enoxaparin 40 Mg/0.4 Ml Syringe SUB-Q 40 mg DAILY LINO Administration Gabapentin 300 mg 04/21/21 09:00 04/23/21 08:11 Gabapentin 300 Mg Capsule PO 300 mg TID LINO Administration Sodium Chloride 1,000 mls @ 50 mls/hr 04/21/21 00:10 04/23/21 07:50 Normal Saline Iv IV CONT Not Given .Q20H LINO Morphine Sulfate 4 mg 04/21/21 00:09 04/23/21 08:10 Morphine Sulfate (*Crx) 4 Mg/Ml Inj IV PUSH 4 mg Q2H PRN Administration Pain Rated 7-10 Pantoprazole Sodium 40 mg 04/21/21 09:00 04/23/21 08:11 Pantoprazole Sodium Iv 40 Mg Vial IV PUSH 40 mg QAM LINO Administration Radiology Results: ITS Impressions Abdomen/Pelvis CT 04/20/21 23:25 IMPRESSION: Pancreatitis Upper Quadrant Ultrasound 04/21/21 08:52 IMPRESSION: 1. Unremarkable abdominal ultrasound exam. MRCP 04/21/21 14:22 IMPRESSION: 1. Necrotizing pancreatitis with sterile acute necrotic collection. 2. Possible 3 mm stone of the distal common bile duct. Labs Labs: Laboratory Results - la
--- NOTE | 2021-04-23 09:39 | PM.IMPN ---
Progress Note: A&P Assessment and Plan (1) Acute on chronic pancreatitis: Code(s): K85.90 - Acute pancreatitis without necrosis or infection, unspecified; K86.1 - Other chronic pancreatitis Status: Acute Assessment and Plan: Lipase 709-->315-->330-->[address] abdomen/ pelvis showed findings consistent with pancreatitis RUQ ultrasound unremarkable Continue gentle IVF MRCP 04/21-->necrotizing pancreatitis with sterile acute necrotic collection; possible 3 mm stone of the distal common bile duct. GI consulted, recommendations appreciated Continue PPI, analgesics and antiemetics as needed LFTs and triglycerides within normal limits S/p ERCP 04/22-->No obvious stone found on common bile duct yesterday but sludge was removed after sphincterotomy Low fat diet, Creon restarted (2) Chronic kidney disease, stage 3: Code(s): N18.30 - Chronic kidney disease, stage 3 unspecified Status: Acute Assessment and Plan: Renal function actually improved from baseline at this time. Continue to monitor BMP closely (3) Elevated blood pressure reading: Code(s): R03.0 - Elevated blood-pressure reading, without diagnosis of hypertension Status: Acute Assessment and Plan: She does not carry a diagnosis of hypertension and is not on any antihypertensive agents. Blood pressure has been elevated which may be related to pain. Improving today with last BP 141/66. Monitor blood pressure trends (4) Microscopic hematuria: Code(s): R31.29 - Other microscopic hematuria Status: Acute Assessment and Plan: Resolved on repeat UA performed today. Additional Plan # acute pancreatitis lipase elevated CT abdomen with irregularity of the body of the pancreas with irregular areas of lower attenuation consistent with cystic change and/or necrosis with prominent peripancreatic fat stranding and thickening of the left anterior para renal fascia. Will continue IV hydration IV analgesics IV antiemetics. will get right upper quadrant ultrasound to look at gallbladder pathology is. LFTs all normal. Get records from [facility] for previous workup. GI consult has been placed from the ER. Check triglyceride level and right upper quadrant ultrasound CT scan abdomen and pelvis done on 03/05/2021 showed evidence of pancreatitis along with suspected nonobstructive choledocholithiasis mild pancreatic duct dilatation up to 4.4 mm. Some clustered punctate hyperdensity in the distal common bile duct with common bile duct minimally prominent measuring up to 6 mm. Prior history of recurrent pancreatitis noted as well. With her recurrent history of pancreatitis with suspected gallbladder etiology with previous scans will move forward with MRCP/ MRI evaluation. GI consultation has also been obtained which is since he will at this point due to her recurrent history of pancreatitis with unclear etiology may need the ERCP evaluation Will also do autoimmune pancreatitis workup with IgG 4 level. Also check CA 19 9 #Abnormal CT chest likely discoid atelectasis and/or scarring right lower lobe. Previous CT scan also shows chronic right lung base opacity related to scarring and/ or bronchiectasis # hypertension could be related to pain no prior history of hypertension. Continue to monitor # GERD on pantoprazole continue same # CKD stage 3 stable # chronic low back pain on gabapentin and duloxetine # mild anemia no active signs bleeding continue to monitor # hematuria microscopic unclear etiology will recheck # DVT prophylaxis Lovenox # full code status #ERCP 04/22 #d/c home tomorrow if pain controlled Subjective Date/time seen: 04/23/21 09:39 Interval history: pt seen and evaluated; continues with abdominal pain; MRCP yesterday Review of Systems Review of Systems: All systems reviewed & are unremarkable except as noted in HPI and below Exam Const: General: no acute distress, alert and awake Orie
[2021-04-23] MEDS: LIPASE/AMYLASE/PROTEASE 12,000 UNITS CAP 2 CAP PO ×2 (11:47→17:24)
[2021-04-23] MEDS: HYDROcodone/acetaminophen (*CRX) 5-325 MG TABLET 2 TAB PO (11:47)
[2021-04-23] MEDS: SODIUM CHLORIDE 0.9% IV 1,000 ML 50 ML IV CONT (11:48)
[2021-04-23 12:00] VITALS: BP 146/55; PULSE 84; RESP 16; TEMP 36.2; O2SAT 92
[2021-04-23 16:00] VITALS: BP 143/72; PULSE 82; RESP 16; TEMP 36.4; O2SAT 88
[2021-04-23 20:00] VITALS: BP 144/68; PULSE 83; RESP 20; TEMP 36.3; O2SAT 93
[2021-04-24] VITALS (8 sets, daily range): BP systolic 134–157; BP diastolic 73–82; PULSE 72–104; RESP 16–20; TEMP 36.2–36.9; O2SAT 92–97
--- NOTE | 2021-04-24 01:14 | PC.NURSE ---
Daylight Savings Time For Daylight Savings Time Ending in the Fall - Clocks are moved back. For Daylight Savings Time Beginning in the Spring - Clocks are moved ahead. For [facility], the time of change occurs at 0200 hrs. Time is taken from the server assistant. This entry on the patient's chart recognizes the change in time reflected during documentation. Example: 2 entries for vital signs may be charted for 0200 hrs.
[2021-04-24] MEDS: MORPHINE SULFATE (*CRX) 4 MG/ML INJ IV PUSH ×2 (01:51→04:53)
[2021-04-24] MEDS: SODIUM CHLORIDE 0.9% IV 1,000 ML 50 ML IV CONT (04:54)
[2021-04-24 07:24] LABS: CA 19-9 27 U/mL (<34)
--- NOTE | 2021-04-24 08:13 | WPDGIPROGNO ---
Progress Note: A&P Assessment and Plan (1) Acute on chronic pancreatitis: Code(s): K85.90 - Acute pancreatitis without necrosis or infection, unspecified; K86.1 - Other chronic pancreatitis Status: Acute Assessment and Plan: Patient with chronic pancreatitis off and on for 3 years. Admitted with acute features. CT scan suggest necrotizing features. Plan is to limit diet today. Repeat lipase which was normal yesterday. As well as are LFTs. She may once again be having an exacerbation of her pancreatitis. Will continue Creon pancreatic enzymes if she is able to tolerate diet. Pain control as much as feasible at this point. (2) Chronic low back pain: Qualifiers: Back pain laterality: bilateral Sciatica presence: without sciatica Qualified Code(s): M54.5 - Low back pain; G89.29 - Other chronic pain Code(s): M54.5 - Low back pain; G89.29 - Other chronic pain Status: Acute Assessment and Plan: Patient is additional pain that appears to be separate from pancreatitis some pain in her low back and hip area as well as her neck. Subjective Date/time seen: 04/24/21 08:13 Patient complains of pains all over. Holding her upper abdomen and as this is tender she also complains of neck and hip pain. She has lost her appetite. Review of Systems Review of Systems: All systems reviewed & are unremarkable except as noted in HPI and below Exam Narrative: Physical exam reveals her to be afebrile. HEENT exam she is anicteric. Lungs are clear. Heart without murmur. Abdomen bowel sounds present soft tender predominantly in her upper abdomen. No masses evident. Objective Data Vital Signs Vital Signs: Vital Signs - 24 hr 04/23/21 12:00 04/23/21 16:00 04/23/21 20:00 Temperature 97.2 F L 97.6 F 97.3 F L Pulse Rate 84 82 83 Respiratory Rate 16 16 20 Blood Pressure 146/55 H 143/72 H 144/68 H Pulse Oximetry 92 88 L 93 04/24/21 00:00 04/24/21 01:47 CDT 04/24/21 04:00 Temperature 98.2 F 97.1 F L Pulse Rate 92 100 Respiratory Rate 20 18 Blood Pressure 147/82 H 150/80 H Pulse Oximetry 93 92 93 Intake/Output Intake/Output: Intake & Output 04/21/21 04/22/21 04/23/21 04/24/21 23:59 23:59 23:59 22:59 Intake Total 2610 2190 1840 1300 Output Total 1300 1400 950 600 Balance 1310 790 890 700 Meds/Results Medications: Active Medications Generic Name Dose Route Start Last Admin Trade Name Freq PRN Reason Stop Dose Admin Hydrocodone Bitart/Acetaminophen 1 tab 04/23/21 09:39 Hydrocodone/Acetaminophen (*Crx) 5-325 Mg Tablet PO Q4H PRN Pain Rated 4-5 Hydrocodone Bitart/Acetaminophen 2 tab 04/23/21 09:39 04/23/21 11:47 Hydrocodone/Acetaminophen (*Crx) 5-325 Mg Tablet PO 2 tab Q4H PRN Administration Pain Rated 6 or Greater Lipase/Protease/Amylase 2 cap 04/23/21 12:00 04/23/21 17:24 Lipase/Amylase/Protease 12,000 Units Cap PO 2 cap TIDWM LINO Administration Duloxetine HCl 30 mg 04/21/21 09:00 04/23/21 08:11 Duloxetine Hcl 30 Mg Capsule. PO 30 mg DAILY LINO Administration Duloxetine HCl 60 mg 04/21/21 09:00 04/23/21 08:11 Duloxetine Hcl 60 Mg Capsule. PO 60 mg DAILY LINO Administration Enoxaparin Sodium 40 mg 04/21/21 09:00 04/23/21 08:11 Enoxaparin 40 Mg/0.4 Ml Syringe SUB-Q 40 mg DAILY LINO Administration Gabapentin 300 mg 04/21/21 09:00 04/23/21 17:24 Gabapentin 300 Mg Capsule PO 300 mg TID LINO Administration Sodium Chloride 1,000 mls @ 50 mls/hr 04/21/21 00:10 04/24/21 04:54 Normal Saline Iv IV CONT 50 mls/hr .Q20H LINO Administration Morphine Sulfate 4 mg 04/23/21 09:42 04/24/21 04:53 Morphine Sulfate (*Crx) 4 Mg/Ml Inj IV PUSH 4 mg Q3H PRN Administration Pain Rated 7-10 Pantoprazole Sodium 40 mg 04/21/21 09:00 04/23/21 08:11 Pantoprazole Sodium Iv 40 Mg Vial IV PUSH 40 mg QAM LINO Administration Radiology Results: ITS Impressions Abdomen/
[2021-04-24 08:21] LABS: Anion Gap 6 mmol/L (8-16); Blood Urea Nitrogen 3 mg/dL (7-17); Calcium 9.1 mg/dL (8.4-10.2); Carbon Dioxide 26 mmol/L (22-30); Chloride 107 mmol/L (98-107); Estimated CRCL calculation 54 ml/min; Estimated Glomerular Filt Rate > 60; Glucose 100 mg/dL (65-110); Lipase 97 U/L (23-300); Potassium 3.7 mmol/L (3.4-5.0); Sodium 139 mmol/L (137-145)
[2021-04-24 08:30] LABS: Hematocrit 30.2 % (37.0-47.0); Hemoglobin 9.4 g/dL (12.0-15.0); Mean Corpuscular HGB Conc 31.1 g/dl (32-36); Mean Corpuscular Hemoglobin 27.4 pg (26-34); Mean Platelet Volume 11.1 fl (7.4-10.4); Platelet Count Result 170 k/mm3 (150-375); Red Blood Count 3.43 M/mm3 (4.2-5.4); Red Cell Distribution Width 18.2 % (11.5-14.5); White Blood Count 6.6 K/mm3 (4.5-10.0)
[2021-04-24 08:33] LABS: Hematocrit 30.5 % (37.0-47.0); Hemoglobin 9.5 g/dL (12.0-15.0)
--- NOTE | 2021-04-24 09:08 | PM.IMPN ---
Progress Note: A&P Assessment and Plan (1) Acute on chronic pancreatitis: Code(s): K85.90 - Acute pancreatitis without necrosis or infection, unspecified; K86.1 - Other chronic pancreatitis Status: Acute Assessment and Plan: Lipase 709-->315-->330-->162-->[address] abdomen/ pelvis showed findings consistent with pancreatitis RUQ ultrasound unremarkable Continue gentle IVF MRCP 04/21-->necrotizing pancreatitis with sterile acute necrotic collection; possible 3 mm stone of the distal common bile duct. GI consulted, recommendations appreciated Continue PPI, analgesics and antiemetics as needed LFTs and triglycerides within normal limits S/p ERCP 04/22-->No obvious stone found on common bile duct yesterday but sludge was removed after sphincterotomy Low fat diet, Creon restarted GS consulted, recommendations appreciated, may need cholecystectomy out patients (2) Chronic kidney disease, stage 3: Code(s): N18.30 - Chronic kidney disease, stage 3 unspecified Status: Acute Assessment and Plan: Renal function actually improved from baseline at this time Continue to monitor BMP closely (3) Elevated blood pressure reading: Code(s): R03.0 - Elevated blood-pressure reading, without diagnosis of hypertension Status: Acute Assessment and Plan: She does not carry a diagnosis of hypertension and is not on any antihypertensive agents. Blood pressure has been elevated which may be related to pain. Monitor blood pressure trends (4) Microscopic hematuria: Code(s): R31.29 - Other microscopic hematuria Status: Acute Assessment and Plan: Resolved on repeat UA Additional Plan # acute pancreatitis lipase elevated CT abdomen with irregularity of the body of the pancreas with irregular areas of lower attenuation consistent with cystic change and/or necrosis with prominent peripancreatic fat stranding and thickening of the left anterior para renal fascia. Will continue IV hydration IV analgesics IV antiemetics. will get right upper quadrant ultrasound to look at gallbladder pathology is. LFTs all normal. Get records from [facility] for previous workup. GI consult has been placed from the ER. Check triglyceride level and right upper quadrant ultrasound CT scan abdomen and pelvis done on 03/05/2021 showed evidence of pancreatitis along with suspected nonobstructive choledocholithiasis mild pancreatic duct dilatation up to 4.4 mm. Some clustered punctate hyperdensity in the distal common bile duct with common bile duct minimally prominent measuring up to 6 mm. Prior history of recurrent pancreatitis noted as well. With her recurrent history of pancreatitis with suspected gallbladder etiology with previous scans will move forward with MRCP/ MRI evaluation. GI consultation has also been obtained which is since he will at this point due to her recurrent history of pancreatitis with unclear etiology may need the ERCP evaluation Will also do autoimmune pancreatitis workup with IgG 4 level. Also check CA 19 9 #Abnormal CT chest likely discoid atelectasis and/or scarring right lower lobe. Previous CT scan also shows chronic right lung base opacity related to scarring and/ or bronchiectasis # hypertension could be related to pain no prior history of hypertension. Continue to monitor # GERD on pantoprazole continue same # CKD stage 3 stable # chronic low back pain on gabapentin and duloxetine # mild anemia no active signs bleeding continue to monitor # hematuria microscopic unclear etiology will recheck # DVT prophylaxis Lovenox # full code status #ERCP 04/22 #d/c home tomorrow if pain controlled Subjective Date/time seen: 04/24/21 09:08 Interval history: 04/23: pt seen and evaluated; continues with abdominal pain; MRCP yesterday 04/24: pt seen this a.m. and still complains of generalized abdominal pain; she also complains of low back pain Review of Systems Review of System
--- NOTE | 2021-04-24 09:45 | PM.CNGS ---
Assessment and Plan Assessment and plan (1) Acute on chronic pancreatitis: Code(s): K85.90 - Acute pancreatitis without necrosis or infection, unspecified; K86.1 - Other chronic pancreatitis Status: Acute Assessment and Plan: exam largely benign, no peritonitis, labs normalized, ?interval cholecystectomy as outpt but hesitant to do acutely given recent pancreatitis and pt mental state, would try to push diet, Creon History of Present Illness Consult details Consult date: 04/24/21 Reason for consult: abdominal pain Requesting physician: Polly Grewal MD Narrative: Pt is a 60 y/o F presenting c severe, diffuse abdominal pain over last 2 wks. Pt reports pain is constant and unrelenting. Pt reports assoc nausea but no emesis. Pt states she is really unable to eat secondary to pain. Pt c h/o pancreatitis over last 3 yrs and has presented to different hospitals for treatment. Pt is very tearful during exam today. Review of Systems Constitutional: Constitutional: Reports anorexia, Denies chills, Reports fatigue, Denies fever(s), Denies increased appetite, Reports lethargy, Reports malaise, Reports poor appetite, Reports weakness, Denies weight gain and Denies weight loss Eyes: Eyes: Reports no additional eye complaints ENT: Reports system reviewed and no additional complaints, except as documented Cardiovascular: Cardiovascular: Reports no additional cardiovascular complaints Respiratory: Respiratory: Reports no additional respiratory complaints Gastrointestinal: Gastrointestinal: Reports as per HPI, Reports abdominal pain, Denies bloating, Denies change in stool character, Reports early satiety, Reports nausea and Denies vomiting Genitourinary: Genitourinary: Reports no additional female genitourinary complaints Musculoskeletal: Musculoskeletal: Reports no additional musculoskeletal complaints Integumentary/Breasts: Skin/Breast: Reports system reviewed and no additional complaints, except as docu Neurologic: Reports system reviewed and no additional complaints, except as documented Psychiatric: Psychiatric: Reports no additional psychiatric complaints Endocrine: Endocrine: Reports no additional endocrine complaints Hematologic/Lymphatic: Hematologic/Lymphatic: Reports no additional hematologic/lymphatic complaints Allergic/Immunologic: Allergic/Immunologic: Reports no additional allergic/immunologic complaints [facility] Past Medical History Medical History Arthritis Chronic kidney disease, stage 3 Chronic pancreatitis Gallbladder disorder Headache Hearing loss Ulcer Unspecified sensorineural hearing loss Family History Family History Mother Lung cancer Social History Social History Smoking packs per day: 1 Smoking cigarettes per day: 20.0 Years smoked: 30 Smoking pack-years: 30.00 Smoking status: Former smoker Tobacco type: cigarettes Alcohol intake: former Substance use: current Substance use type: marijuana Last use: 1 WEEK AGO Spiritual care concerns: No Meds Home Medications and Allergies Home Medications Medication Instructions Recorded Confirmed Type gabapentin 300 mg capsule 300 mg PO TID #270 cap 06/28/20 04/21/21 Rx omeprazole 20 mg capsule,delayed 20 mg PO DAILY #90 cap 06/28/20 04/21/21 Rx release duloxetine 30 mg capsule,delayed 30 mg PO DAILY #90 cap 02/28/21 04/21/21 Rx release duloxetine 60 mg capsule,delayed 60 mg PO DAILY #90 cap 02/28/21 04/21/21 Rx release pantoprazole 40 mg PO QAM 04/21/21 04/21/21 History Allergies Allergy/AdvReac Type Severity Reaction Status Date / Time tramadol Allergy Vomiting Verified 04/22/21 13:12 Vital Signs Vital Signs - 24 hr 04/23/21 12:00 04/23/21 16:00 04/23/21 20:00 Temperature 36.2 C L 36.4 C 36.3 C L Pulse Rate 84 82 83
--- NOTE | 2021-04-24 11:17 | PC.NURSE ---
I received report from the night nurse that pt had been asking for increasing dosages and frequencies of IV pain meds and that pt was refusing PO meds. It was also reported that pt's breathing had slowed considerably and she desatted into the 80's throughout the night. Additionally, pt had to be awakened every time someone entered the room but immediately upon waking she was demand IV pain meds in greater amounts.
--- NOTE | 2021-04-24 11:19 | PC.NURSE ---
immediately upon entered pt's room this morning, she demanded IV pain meds. I informed her I would check the time when she could next have any pain meds. Pt began calling other nurses and CNAs attempting to get them to give her IV pain meds. They contacted me and told me she wanted pain meds. I went and spoke with pt and explained to her that it was not time for pain meds yet and that I would have to give her PO pain meds. She became very angry and demanded IV pain meds and threatened to check herself out AMA if I did not give her IV pain meds. I further explained that she was maxed out and that the night nurse and I are concerned about her breathing being suppressed as well as the fact that she is sleeping constantly, not getting out of the bed, not eating or drinking anything and that she may likely have too much morphine in her system at this point. Pt informed me that she wants to be asleep all of the time and that if I don't give her IV pain meds she is going AMA. I reiterated that it was too soon for another dose of pain meds, that it would have to be PO, and that I was gravely concerned about her respiration. Pt demanded to speak with her doctor and kept repeating that over and over. I left the room and contacted the hospitalist informing her of what has transpired.
--- NOTE | 2021-04-24 11:25 | PC.NURSE ---
I spoke with Dr. Diaz after his examination of pt. He stated pt was not a surgical candidate and that she should be referred to a biliary specialist at [place] (or somewhere similar) as an outpatient. From surgery perspective, pt should be discharged.
--- NOTE | 2021-04-24 11:32 | PC.NURSE ---
I spoke with Dr. Naqvi regarding pt's complaints of pain, et al. He stated that pt has pain throughout her body that is not GI related as well as from chronic pancreatitis. That there was nothing more to be done from a GI perspective.
--- NOTE | 2021-04-24 11:36 | PC.NURSE ---
I entered pt's room in an attempt to pass her morning meds again; however, pt was sleeping deeply and it was difficult to arouse her. Eventually, I was able to awaken pt (it took multiple attempts), and informed her that I had morning meds for her. Pt refused all meds. I also informed her that I had PO pain meds that I could give her to which pt stated, I don't want any pills they don't work, give me the IV med. I'm not taking any pills. I explained that I had other meds besides the pain meds for pt to take and she again refused to take any of the meds.
[2021-04-24] MEDS: GABAPENTIN 300 MG CAPSULE PO ×2 (12:32→17:23)
[2021-04-24] MEDS: LIPASE/AMYLASE/PROTEASE 12,000 UNITS CAP 2 CAP PO ×2 (12:32→17:23)
[2021-04-24] MEDS: HYDROcodone/acetaminophen (*CRX) 5-325 MG TABLET 2 TAB PO ×2 (12:32→21:38)
[2021-04-24] MEDS: PANTOPRAZOLE SODIUM IV 40 MG VIAL IV PUSH (12:35)
[2021-04-24 22:20] LABS: Glucose Point of Care 125 mg/dl (65-105)
[2021-04-25] VITALS: BP 133/68; PULSE 78; RESP 17; TEMP 35.7; O2SAT 95
[2021-04-25] MEDS: SODIUM CHLORIDE 0.9% IV 1,000 ML 50 ML IV CONT (02:25)
[2021-04-25 03:20] VITALS: BP 147/71; PULSE 74; RESP 18; TEMP 36.9; O2SAT 96
[2021-04-25] MEDS: HYDROcodone/acetaminophen (*CRX) 5-325 MG TABLET 2 TAB PO ×2 (07:56→12:18)
[2021-04-25] MEDS: LIPASE/AMYLASE/PROTEASE 12,000 UNITS CAP 2 CAP PO ×2 (08:00→12:16)
[2021-04-25] MEDS: GABAPENTIN 300 MG CAPSULE PO ×2 (08:01→12:16)
[2021-04-25] MEDS: DULoxetine HCL 60 MG CAPSULE.DR PO (08:01)
[2021-04-25] MEDS: DULoxetine HCL 30 MG CAPSULE.DR PO (08:01)
[2021-04-25] MEDS: PANTOPRAZOLE SODIUM IV 40 MG VIAL IV PUSH (08:01)
[2021-04-25] MEDS: ENOXAPARIN 40 MG/0.4 ML SYRINGE SUB-Q (08:01)
[2021-04-25 10:00] VITALS: BP 162/76; PULSE 78; RESP 14; TEMP 36.2; O2SAT 100
--- NOTE | 2021-04-25 11:34 | WPDGIPROGNO ---
Progress Note: A&P Assessment and Plan (1) Acute on chronic pancreatitis: Code(s): K85.90 - Acute pancreatitis without necrosis or infection, unspecified; K86.1 - Other chronic pancreatitis Status: Acute Assessment and Plan: Patient continues to have abdominal pain. Now status post ERCP and clearance of the common bile duct. Recent follow-up CT scan reveals pancreatitis it appears stable in perhaps improving. Lipase has returned to normal. Suspect she may have some component of chronic pancreatitis. Plan is to continue oral Creon. Try to control pain medications with oral medications. Consider other causes for some of her pains. She does have hip and neck pain suggesting musculoskeletal difficulties. Subjective Date/time seen: 04/25/21 11:34 Patient continues to have upper abdominal pain. She also hurts in her back and neck. Apparently continues to have pain despite limiting diet. Review of Systems Review of Systems: All systems reviewed & are unremarkable except as noted in HPI and below Exam Narrative: Physical exam patient is alert. Abdomen is soft. [id number] tenderness in the upper abdomen. No masses elicited. Bowel sounds are present. Objective Data Vital Signs Vital Signs: Vital Signs - 24 hr 04/24/21 12:00 04/24/21 16:00 04/24/21 19:49 Temperature 98.1 F 97.9 F 98 F Pulse Rate 87 89 72 Respiratory Rate 16 16 18 Blood Pressure 146/73 H 146/74 H 134/82 Pulse Oximetry 93 96 97 04/24/21 23:09 04/25/21 00:00 04/25/21 03:20 Temperature 96.2 F L 98.5 F Pulse Rate 78 74 Respiratory Rate 17 18 Blood Pressure 133/68 147/71 H Pulse Oximetry 93 95 96 04/25/21 10:00 Temperature 97.1 F L Pulse Rate 78 Respiratory Rate 14 Blood Pressure 162/76 H Pulse Oximetry 100 Intake/Output Intake/Output: Intake & Output 04/23/21 04/24/21 04/24/21 04/25/21 00:59 00:59 23:59 23:59 Intake Total 1300 Output Total Balance 1300 Meds/Results Medications: Active Medications Generic Name Dose Route Start Last Admin Trade Name Freq PRN Reason Stop Dose Admin Hydrocodone Bitart/Acetaminophen 1 tab 04/23/21 09:39 Hydrocodone/Acetaminophen (*Crx) 5-325 Mg Tablet PO Q4H PRN Pain Rated 4-5 Hydrocodone Bitart/Acetaminophen 2 tab 04/23/21 09:39 04/25/21 07:56 Hydrocodone/Acetaminophen (*Crx) 5-325 Mg Tablet PO 2 tab Q4H PRN Administration Pain Rated 6 or Greater Lipase/Protease/Amylase 2 cap 04/23/21 12:00 04/25/21 08:00 Lipase/Amylase/Protease 12,000 Units Cap PO 2 cap TIDWM LINO Administration Duloxetine HCl 30 mg 04/21/21 09:00 04/25/21 08:01 Duloxetine Hcl 30 Mg Capsule. PO 30 mg DAILY LINO Administration Duloxetine HCl 60 mg 04/21/21 09:00 04/25/21 08:01 Duloxetine Hcl 60 Mg Capsule. PO 60 mg DAILY LINO Administration Enoxaparin Sodium 40 mg 04/21/21 09:00 04/25/21 08:01 Enoxaparin 40 Mg/0.4 Ml Syringe SUB-Q 40 mg DAILY LINO Administration Gabapentin 300 mg 04/21/21 09:00 04/25/21 08:01 Gabapentin 300 Mg Capsule PO 300 mg TID LINO Administration Sodium Chloride 1,000 mls @ 50 mls/hr 04/21/21 00:10 04/25/21 02:25 Normal Saline Iv IV CONT 50 mls/hr .Q20H LINO Administration Morphine Sulfate 4 mg 04/23/21 09:42 04/24/21 04:53 Morphine Sulfate (*Crx) 4 Mg/Ml Inj IV PUSH 4 mg Q3H PRN Administration Pain Rated 7-10 Pantoprazole Sodium 40 mg 04/21/21 09:00 04/25/21 08:01 Pantoprazole Sodium Iv 40 Mg Vial IV PUSH 40 mg QAM LINO Administration Radiology Results: ITS Impressions Abdomen/Pelvis CT 04/20/21 23:25 IMPRESSION: Pancreatitis Upper Quadrant Ultrasound 04/21/21 08:52 IMPRESSION: 1. Unremarkable abdominal ultrasound exam. MRCP 04/21/21 14:22 IMPRESSION: 1. Necrotizing pancreatitis with sterile acute necrotic collection. 2. Possible 3 mm stone of the distal common bile duct. Endo Retro Ch
[2021-04-25 14:45] VITALS: BP 152/71; PULSE 73; RESP 14; TEMP 36.4; O2SAT 97
--- NOTE | 2021-04-25 14:49 | PM.DS ---
DS: Admitting Diagnosis Discharge Date 04/25/2020 04/25/2021 Admitting Diagnosis Pancreatitis DS: Discharge Diagnosis Discharge Diagnosis (1) Acute on chronic pancreatitis: Code(s): K85.90 - Acute pancreatitis without necrosis or infection, unspecified; K86.1 - Other chronic pancreatitis Status: Acute Assessment and Plan: Presented with epigastric pain, Lipase elevated up to 709, and CT abdomen/ pelvis showed findings consistent with pancreatitis. RUQ ultrasound unremarkable. LFTs and triglycerides within normal limits. She was seen in consultation by Gastroenterology. Underwent MRCP on 04/21/2021 which showed features of necrotizing pancreatitis with sterile acute necrotic collection and possible thrill mm stone in the distal common bile duct. ERCP on 04/22 performed with no obvious stone found in the common bile duct with sludge removed following sphincterotomy. She was seen in consultation by General surgery, and outpatient elective cholecystectomy considered. She will need to follow-up with general surgery. Repeat CT scan showed no significant changes. Her diet was advanced and she was able to tolerate a low-fat diet. Continue Creon supplements (2) Chronic kidney disease, stage 3: Code(s): N18.30 - Chronic kidney disease, stage 3 unspecified Status: Acute Assessment and Plan: Renal function monitored and remained stable with creatinine 0.8-0.9. (3) Elevated blood pressure reading: Code(s): R03.0 - Elevated blood-pressure reading, without diagnosis of hypertension Status: Acute Assessment and Plan: She does not carry a diagnosis of hypertension and is not on any antihypertensive agents. Blood pressure was elevated at times which may be related to pain/anxiety surrounding hospitalization. Instructed to monitor blood pressure at home and record for PCP review to consider addition of antihypertensive agent. (4) Microscopic hematuria: Code(s): R31.29 - Other microscopic hematuria Status: Acute Assessment and Plan: Resolved on repeat UA. 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 On presentation to the emergency department, her vital signs were stable, she was afebrile, H&H should decreased, additional CBC unremarkable, creatinine 1.1, additional electrolytes stable, CT abdomen/pelvis showed pancreatitis. She was admitted to the hospitalist service for further evaluation and management and was seen in consultation by Gastroenterology and General surgery. Please see above for further details. She did have ERCP with sludge removal. With bowel rest and rehydration, she began feeling better and was eventually able to tolerate a low-fat diet. She requested discharge home. Given her overall improvement, she was determined to no longer require inpatient care and was felt to be stable for discharge. We discussed worrisome signs and symptoms for which to return and she was educated on her medications. She was discharged in hemodynamically stable condition on 04/25/2021. Status at Discharge Functional status at discharge: independent ambulation Overall status at discharge: patient is progressing back to baseline Time Spent with Patient Time attestation: Total time spent providing and/or coordinating discharge services: 45 minutes Time spent: Greater than 30 minutes Exam Narrative: Ms. Asencio is a well-nourished, well-appearing 60-year-old female who is lying supine in bed. She appears comfortable and is in NARD. Neuro: awake, alert and or
--- NOTE | 2021-04-25 15:48 | PM.PNGS ---
Progress Note: A&P Assessment and Plan (1) Acute on chronic pancreatitis: Code(s): K85.90 - Acute pancreatitis without necrosis or infection, unspecified; K86.1 - Other chronic pancreatitis Status: Acute Assessment and Plan: Labs normalized. Exam benign, no peritoneal sings. Could consider interval cholecystectomy as an outpatient, would try to avoid doing this acutely given her recent pancreatitis and mental state. Okay to discharge from surgical standpoint. Continue low fat diet. Instructed patient to call for f/u appointment with Dr. Diaz in regards to discussing cholecystectomy as an outpatient. Agree with continuing Creon. Additional Plan I have discussed the patient's case and plan of care with Dr. Diaz. Subjective Subjective Date/Time Seen: 04/25/21 13:48 Patient reports: no new complaints and afebrile Interval history: This is a 60 yo female with chronic pancreatitis and suspected acute episode. She underwent ERCP on 04/22/21 with sphincterotomy and removal of sludge from CBD. Lipase trended to normal. She has been advanced to a low fat diet. She was started on Creon. Chart reviewed. She is now seen on the medical floor. She is still complaining of abdominal pain in the epigastric area. No nausea or vomiting. She is tolerating her diet and does not feel it is exacerbating her pain. No other complaints at this time. Review of Systems Review of Systems: All systems reviewed & are unremarkable except as noted in HPI and below Exam Const: General: comfortable, no acute distress, alert, awake and ill appearing chronically Orientation/consciousness: patient oriented x3 GI: Inspection: non-distended GI Palp: Yes Soft to palpation, Yes Tenderness to palpation present (GI) (tender throughout, worse in the epigastric and LUQ), No Guarding due to palpation present (GI), No Hernia present and No Rebound tenderness present Auscultation: normal bowel sounds Skin: General skin exam: normal color Neuro: General: moves all extremities and no focal motor deficits Speech: No Abnormal speech present Extrem: General: no clubbing, cyanosis or edema Psych: Mental Status: mental status grossly normal Insight: Fair insight present (Psych) Judgement: Fair judgement present (Psych) Objective Data Vital Signs Vital Signs: Vital Signs - 24 hr 04/24/21 16:00 04/24/21 19:49 04/24/21 23:09 Temperature 97.9 F 98 F Pulse Rate 89 72 Respiratory Rate 16 18 Blood Pressure 146/74 H 134/82 Pulse Oximetry 96 97 93 04/25/21 00:00 04/25/21 03:20 04/25/21 10:00 Temperature 96.2 F L 98.5 F 97.1 F L Pulse Rate 78 74 78 Respiratory Rate 17 18 14 Blood Pressure 133/68 147/71 H 162/76 H Pulse Oximetry 95 96 100 04/25/21 14:45 Temperature 97.5 F L Pulse Rate 73 Respiratory Rate 14 Blood Pressure 152/71 H Pulse Oximetry 97 Intake/Output Intake/Output: Intake & Output 04/23/21 04/24/21 04/24/21 04/25/21 00:59 00:59 23:59 23:59 Intake Total 1540 Output Total Balance 1540 Meds/Results Medications: Active Medications Generic Name Dose Route Start Last Admin Trade Name Freq PRN Reason Stop Dose Admin Hydrocodone Bitart/Acetaminophen 1 tab 04/23/21 09:39 Hydrocodone/Acetaminophen (*Crx) 5-325 Mg Tablet PO Q4H PRN Pain Rated 4-5 Hydrocodone Bitart/Acetaminophen 2 tab 04/23/21 09:39 04/25/21 12:18 Hydrocodone/Acetaminophen (*Crx) 5-325 Mg Tablet PO 2 tab Q4H PRN Administration Pain Rated 6 or Greater Lipase/Protease/Amylase 2 cap 04/23/21 12:00 04/25/21 12:16 Lipase/Amylase/Protease 12,000 Units Cap PO 2 cap TIDWM LINO Administration Duloxetine HCl 30 mg 04/21/21 09:00 04/25/21 08:01 Duloxetine Hcl 30 Mg Capsule. PO 30 mg DAILY LINO Administration Duloxetine HCl 60 mg 04/21/21 09:00 04/25/21 08:01 Duloxetine Hcl 60 Mg Capsule. PO 60 mg DAILY LINO Administration Enoxaparin Sodium 40 mg 04/21/21 09:00 04/25/21 08:0
== END 2021-04-25 15:20 | disposition home or self-care (01) | DRG 440 ==
LOC: ANHED 04-21 00:17 → ANH2MED 04-21 07:39
PROVIDERS: Internal Medicine Gastroenterology; Nurse Practitioner Adult Health; Admitting Provider Internal Medicine; Emergency Provider Family Medicine; PCP Internal Medicine; Visit Provider Physician Assistant
PROC: 0FC98ZZ Extirpation of Matter from Common Bile Duct, Via Natural or Artificial Opening Endoscopic (ICD-10-PCS; CPT 43260; principal; 2021-04-22 14:30)
DX: K85.90 Acute pancreatitis without necrosis or infection, unspecified (principal); K86.0 Alcohol-induced chronic pancreatitis; K83.8 Other specified diseases of biliary tract; N18.30 Chronic kidney disease, stage 3 unspecified; R03.0 Elevated blood-pressure reading, without diagnosis of hypertension; R31.29 Other microscopic hematuria; M19.90 Unspecified osteoarthritis, unspecified site; H90.5 Unspecified sensorineural hearing loss; K21.9 Gastro-esophageal reflux disease without esophagitis; M54.50 Low back pain, unspecified; G89.29 Other chronic pain; Z87.891 Personal history of nicotine dependence
CPT/HCPCS: 36415; 74150; 74177; 74183; 74329; 76376; 76705; 80048; 80076; 81001; 81003; 82784; 82787; 82948; 83690; 84478; 85014; 85018; 85025; 85027; 86301; 96361; 96374; 99285; A9270; A9577; C9113; J0330; J1650; J2060; J2270; J2405; J2704; J7030; J7120; Q9967